=== PATIENT | male | born 1950 | race Caucasian/White ===

== ENCOUNTER → 2019-01-03 | Outpatient (CLI) | payer MEDICARE, OTHER ==
[2019-01-03] MEDS: NITROGLYCERIN AEROSOL (4.9 GM) (10:15)
[2019-01-03] MEDS: SOD CHLORIDE 0.9% 100 ML (10:26)
[2019-01-03] MEDS: IODIXANOL LOCM 100 ML BTL (10:26)
== END | disposition home or self-care (01) ==
LOC: C/S 09:00
DX: R06.02 Shortness of breath (principal); R93.1 Abnormal findings on diagnostic imaging of heart and coronary circulation
CPT/HCPCS: 75571; 75574